=== PATIENT | male | born 1985 | race Caucasian/White ===

== ENCOUNTER 2016-09-18 14:45 | Outpatient (RCR) | payer OTHER ==
[~2016-09-18 14:45] MED LIST: BIO-CEF500 MG PO; TYLENOL/CODEINE1 ML PO
== END 2016-09-25 | disposition home or self-care (01) ==
LOC: MKS.ESL.PT
DX: M54.5 Low back pain (principal)
CPT/HCPCS: G0283-GP; G8978-GP; G8979-GP

== ENCOUNTER 2016-12-16 14:45 | Outpatient (RCR) | payer OTHER | END 2016-12-17 16:47 | disposition home or self-care (01) | LOC: MKS.ESL.PT 14:45 | DX: M54.5 Low back pain (principal) | CPT/HCPCS: G8979-GP; G8980-GP ==

== ENCOUNTER 2017-04-01 14:45 | Outpatient (RCR) | payer OTHER | END 2017-04-06 | disposition home or self-care (01) | LOC: MKS.ESL.PT | DX: M25.569 Pain in unspecified knee (principal) | CPT/HCPCS: G8978-GP; G8979-GP ==

== ENCOUNTER 2017-06-09 14:45 | Outpatient (RCR) | payer OTHER | END 2017-07-06 | disposition home or self-care (01) | LOC: MKS.ESL.PT | DX: M25.562 Pain in left knee (principal); M25.561 Pain in right knee ==

== ENCOUNTER 2017-11-20 10:24 | Day surgery (SDC) | payer OTHER ==
[~2017-11-20] VITALS: Ht 180.3 cm; Wt 82.2 kg
[2017-11-20] MEDS ORDERED: FLONASEALLERGY NS (10:38)
[2017-11-20] MEDS ORDERED: B-121000 MCG PO (10:38)
[2017-11-20] MEDS ORDERED: EPA FISH OIL1 SGL PO (10:39)
[2017-11-20] MEDS ORDERED: FOLIC ACID 11 MG/TA1 PO (10:39)
[2017-11-20] MEDS ORDERED: PRILOSEC 20MG20 MG PO (10:40)
[2017-11-20] MEDS ORDERED: NEURONTIN600 MG/TAB PO (10:40)
[2017-11-20] MEDS ORDERED: PROAIR HFA0.09 MG/AC IH (10:40)
[2017-11-20] MEDS ORDERED: VIAGRA100 M1 PO (10:41)
[2017-11-20] MEDS ORDERED: PHARMASSURE ZIN50 MG PO (10:41)
[2017-11-20] MEDS ORDERED: SARAFEM20 M1 PO (10:42)
[2017-11-20] MEDS ORDERED: COLCRYS0.6 MG PO (10:42)
[2017-11-20 11:04] VITALS: BP 120/77; PULSE 64; TEMP 97.5
[2017-11-20 12:30] VITALS: BP 107/66; PULSE 65; TEMP 97.7
[2017-11-20 12:45] VITALS: BP 103/77; PULSE 80
[2017-11-20 13:00] VITALS: BP 110/84; PULSE 54
[2017-11-20 13:15] VITALS: BP 120/82; PULSE 54
[2017-11-20 13:30] VITALS: BP 106/71; PULSE 52
== END 2017-11-20 13:50 | disposition home or self-care (01) ==
LOC: SDCO 10:24
DX: K21.9 Gastro-esophageal reflux disease without esophagitis (principal); R07.9 Chest pain, unspecified; R19.7 Diarrhea, unspecified; R19.5 Other fecal abnormalities; K64.1 Second degree hemorrhoids; F43.10 Post-traumatic stress disorder, unspecified; F41.9 Anxiety disorder, unspecified; F32.9 Major depressive disorder, single episode, unspecified; M10.9 Gout, unspecified; Z88.8 Allergy status to other drugs, medicaments and biological substances
CPT/HCPCS: J2250; J3010; J7030

== ENCOUNTER 2017-12-30 15:30 | Outpatient (RCR) | payer OTHER ==
[~2017-12-30 15:30] MED LIST changes: +B-121000 MCG PO; +COLCRYS0.6 MG PO; +EPA FISH OIL1 SGL PO; +FLONASEALLERGY NS; +FOLIC ACID 11 MG/TA1 PO; +NEURONTIN600 MG/TAB PO; +PHARMASSURE ZIN50 MG PO; +PRILOSEC 20MG20 MG PO; +PROAIR HFA0.09 MG/AC IH; +SARAFEM20 M1 PO; +VIAGRA100 M1 PO
== END 2017-12-31 09:05 | disposition home or self-care (01) ==
LOC: MKS.ESL.PT 15:30
DX: M25.511 Pain in right shoulder (principal); Z79.899 Other long term (current) drug therapy

== ENCOUNTER 2019-06-17 15:30 | Outpatient (RCR) | payer OTHER | END 2019-06-21 | disposition still patient (30) | LOC: MKS.ESL.PT | DX: M25.512 Pain in left shoulder (principal) | CPT/HCPCS: G0283-GP ==

== ENCOUNTER 2019-12-05 10:00 | Outpatient (RCR) | payer OTHER | END 2020-01-02 | disposition home or self-care (01) | LOC: MKS.ESL.PT | DX: M75.21 Bicipital tendinitis, right shoulder (principal); Z98.890 Other specified postprocedural states ==

== ENCOUNTER → 2020-04-05 | Outpatient (RCR) | payer OTHER | END | disposition home or self-care (01) | LOC: MKS.ESL.PT | DX: M25.811 Other specified joint disorders, right shoulder (principal) ==

== ENCOUNTER 2020-05-16 16:00 | Outpatient (RCR) | payer OTHER | END 2020-05-16 17:14 | disposition home or self-care (01) | LOC: MKS.ESL.PT 16:00 | DX: M75.80 Other shoulder lesions, unspecified shoulder (principal) ==